=== PATIENT | female | born 1935 | race Caucasian/White ===

== ENCOUNTER 2018-11-04 13:00 | Observation (INO) | payer MEDICARE ==
[2018-11-04] MEDS ORDERED: Ondansetron 4 MG/2 ML SDV IVPUSH PRN (13:17)
[2018-11-04] MEDS ORDERED: Sodium Chloride 0.9% 1,000 ML IV SCH ×2 (13:30→15:15)
[2018-11-04 13:33] LABS: CHLORIDE,CL 98 mEq/L (98-106); SODIUM,NA 134 mEq/L (136-145)
[2018-11-04] MEDS ORDERED: Iopamidol 612 MG/ML 100 ML Bottle IVPUSH ONE (13:54)
[2018-11-04] MEDS ORDERED: Calcium Carbonate 500 MG Tab.Chew PO PRN (15:01)
[2018-11-04] MEDS ORDERED: Acetaminophen 325 MG Tab PO PRN (15:08)
--- NOTE | 2018-11-04 18:08 | EDM.PDOC ---
ED HPI GENERAL MEDICAL PROBLEM - General Chief Complaint: General Stated Complaint: dizziness, nausea Time Seen by Provider: 11/04/18 13:40 Source of Information: Reports: Patient History Limitations: Reports: No Limitations - History of Present Illness INITIAL COMMENTS - FREE TEXT/NARRATIVE: Briana is an 83 you female who presents to the ED via private vehicle with complaints of dizziness. She states she started having the dizziness around 1100 this morning. States she has been dry heaving and feeling very nauseated. Admits it feels like the room is spinning and if she turns her head to the right it gets worse. States up until this morning she has been feeling well. - Related Data Allergies Allergy/AdvReac Type Severity Reaction Status Date / Time Penicillins Allergy Hives Verified 11/04/18 13:06 Home Meds: Home Meds Calcium Carbonate [Tums] 200 mg PO DAILY PRN 07/11/15 [History] Levothyroxine 75 mcg PO ACBREAKFAST 07/11/15 [History] Diltiazem [Cardizem CD] 120 mg PO DAILY #30 cap.cd 07/13/15 [Rx] Past Medical History HEENT History: Reports: Impaired Vision Cardiovascular History: Reports: Afib, Hypertension Endocrine/Metabolic History: Reports: Hypothyroidism - Past Surgical History GI Surgical History: Reports: Cholecystectomy, Vicki Fundoplication Female Surgical History: Reports: Hysterectomy Musculoskeletal Surgical History: Reports: Joint Replacement Dermatological Surgical History: Reports: Other (See Below) Social & Family History - Tobacco Use Smoking Status *Q: Never Smoker - Caffeine Use Caffeine Use: Reports: Soda - Recreational Drug Use Recreational Drug Use: No ED ROS GENERAL - Review of Systems Review Of Systems: See Below Constitutional: Denies: Fever, Weakness, Diaphoresis HEENT: Reports: Vertigo. Denies: Sinus Problem, Vision Change Respiratory: Denies: Shortness of Breath, Wheezing, Pleuritic Chest Pain Cardiovascular: Reports: Lightheadedness. Denies: Chest Pain, Palpitations, Syncope GI/Abdominal: Reports: Nausea. Denies: Abdominal Pain, Bloody Stool, Constipation, Diarrhea : Reports: No Symptoms. Denies: Discharge, Dysuria, Frequency, Hematuria, Pain, Urgency Skin: Reports: No Symptoms Neurological: Reports: Difficulty Walking. Denies: Confusion, Headache, Numbness, Pre-Existing Deficit, Seizure, Syncope, Tingling, Change in Speech ED EXAM, GENERAL - Physical Exam Exam: See Below Exam Limited By: No Limitations General Appearance: Alert, No Apparent Distress Ears: Normal External Exam, Normal Canal, Hearing Grossly Normal, Normal TMs Nose: Normal Inspection, Normal Mucosa, No Blood Throat/Mouth: Normal Inspection, Normal Lips, Normal Gums, Normal Oropharynx, Normal Voice, No Airway Compromise Head: Atraumatic, Normocephalic, Other (Positive Marcello-Hallpike maneuver test R>L) Neck: Supple, Other (Irregular, mobile lesion to right parotid gland) Respiratory/Chest: No Respiratory Distress, Lungs Clear, Normal Breath Sounds, No Accessory Muscle Use Cardiovascular: Regular Rate, Rhythm, No Edema, No Murmur Neurological: Alert, Oriented, CN II-XII Intact, Normal Cognition, No Motor/ Sensory Deficits Psychiatric: Normal Affect, Normal Mood Skin Exam: Warm, Dry, Intact, Normal Color, No Rash Course - Vital Signs Last Recorded V/S: Last Vital Signs Temp 96.9 F 11/04/18 13:59 Pulse 66 11/04/18 13:59 Resp 16 11/04/18 13:59 BP 182/74 H 11/04/18 13:59 Pulse Ox 100 11/04/18 13:59 - Orders/Labs/Meds Orders: Active Orders 24 hr Category Date Time Status Soft Tissue Neck w Cont [CT] Routine Exams 11/04/18 Taken Ondansetron [Zofran] Med 11/04/18 13:17 Active 4 mg IVPUSH Q6H PRN Medication Orders Acetaminophen (Tylenol) 650 mg PO Q4H PRN PRN Reason: Pain (Mild 1-3)/fever Calcium Carbonate/Glycine (Tums) 200 mg PO DAILY PRN PRN Reason: Other Diltiazem HCl (Cardizem Cd) 120 mg PO DAILY [facility] Enoxaparin Sodium (Lovenox) 40 mg SUBCUT BEDTIME [facility] Sodium Chloride (Normal Saline) 1,000 mls @ 75 mls/hr IV ASDIRECTED [facility] Non-Formulary Medication (Levothyroxine [Levothyroxine]) 75 mcg PO ACBREAKFAST [facility] Ondansetron HCl (Zofran) 4 mg IVPUSH Q6H PRN PRN Reason: Nausea Last Admin: 11/04/18 13:22 Dose: 4 mg Labs: Laboratory Tests 11/04/18 11/04/1811/04/19 Range/Units 13:10 13:10 13:10 WBC 4.8 L (5.0-10.0) 10^3/uL RBC 4.29 (4.00-5.50) 10^6/uL Hgb 12.4 (12.0-16.0) g/dL Hct 37.0 (37.0-47.0) % MCV 86.2 (82.0-94.0) fL MCH 28.9 (27.0-32.0) pg MCHC 33.5 (33.0-38.0) g/dL RDW Coeff of Jesus 12.9 (11.0-15.0) % Plt Count 223 (150-400) 10^3/uL Neut % (Auto) 70.5 (35-85) % Lymph % (Auto) 16.9 (10-55) % [place] % (Auto) 11.2 (0-16) % Eos % (Auto) 1.0 (0-5) % Baso % (Auto) 0.4 (0-3) % Neut # (Auto) 3.41 (1.80-7.00) 10^3/uL Lymph # (Auto) 0.82 L (1.00-4.80) 10^3/uL [place] # (Auto) 0.54 (0.00-0.80) 10^3/uL Eos # (Auto) 0.05 (0.00-0.45) 10^3/uL Baso # (Auto) 0.02 10^3/uL PT 10.4 (9.7-12.3) SEC INR 1.01 (0.92-1.18) APTT 25.4 (23.2-32.3) SEC Sodium 134 L (136-145) mEq/L Potassium 3.6 (3.5-5.0) mEq/L Chloride 98 (98-106) mEq/L Carbon Dioxide 24 (21-32) mmol/L BUN 14 (7-18) mg/dL Creatinine 1.1 H (0.6-1.0) mg/dL Est Cr Clr Drug Dosing 35.64 mL/min Estimated GFR (MDRD) 47 L (>=60) mL/min Glucose 130 H D (75-99) mg/dL Calcium 9.1 (8.4-10.1) mg/dL Lactate Dehydrogenase 159 (100-190) U/L Creatine Kinase 77 (21-215) U/L Troponin I < 0.017 (0.00-0.06) ng/mL TSH, Ultra Sensitive (0.36-5.60) uIU/mL Urine Color (YELLOW) Urine Appearance (CLEAR) Urine pH (4.5-8.0) Ur Specific [place] (1.003-1.020) Urine Protein (NEGATIVE) mg/dL Urine Glucose (UA) (NEGATIVE) mg/dL Urine Ketones (NEGATIVE) mg/dL Urine Occult Blood (NEGATIVE) Urine Nitrite (NEGATIVE) Urine Bilirubin (NEGATIVE) Urine Urobilinogen (0.2-1.0) EU/dL Ur Leukocyte Esterase (NEGATIVE) 11/04/18 11/04/18 Range/Units 13:48 13:48 WBC (5.0-10.0) 10^3/uL RBC (4.00-5.50) 10^6/uL Hgb (12.0-16.0) g/dL Hct (37.0-47.0) % MCV (82.0-94.0) fL MCH (27.0-32.0) pg MCHC (33.0-38.0) g/dL RDW Coeff of Jesus (11.0-15.0) % Plt Count (150-400) 10^3/uL Neut % (Auto) (35-85) % Lymph % (Auto) (10-55) % [place] % (Auto) (0-16) % Eos % (Auto) (0-5) % Baso % (Auto) (0-3) % Neut # (Auto) (1.80-7.00) 10^3/uL Lymph # (Auto) (1.00-4.80) 10^3/uL [place]y # (Auto) (0.00-0.80) 10^3/uL Eos # (Auto) (0.00-0.45) 10^3/uL Baso # (Auto) 10^3/uL PT (9.7-12.3) SEC INR (0.92-1.18) APTT (23.2-32.3) SEC Sodium (136-145) mEq/L Potassium (3.5-5.0) mEq/L Chloride (98-106) mEq/L Carbon Dioxide (21-32) mmol/L BUN (7-18) mg/dL Creatinine (0.6-1.0) mg/dL Est Cr Clr Drug Dosing mL/min Estimated GFR (MDRD) (>=60) mL/min Glucose (75-99) mg/dL Calcium (8.4-10.1) mg/dL Lactate Dehydrogenase (100-190) U/L Creatine Kinase (21-215) U/L Troponin I (0.00-0.06) ng/mL TSH, Ultra Sensitive 4.04 (0.36-5.60) uIU/mL Urine Color Yellow (YELLOW) Urine Appearance Clear (CLEAR) Urine pH 7.5 (4.5-8.0) Ur Specific [place] 1.015 (1.003-1.020) Urine Protein Negative (NEGATIVE) mg/dL Urine Glucose (UA) Negative (NEGATIVE) mg/dL Urine Ketones Negative (NEGATIVE) mg/dL Urine Occult Blood Negative (NEGATIVE) Urine Nitrite Negative (NEGATIVE) Urine Bilirubin Negative (NEGATIVE) Urine Urobilinogen 0.2 (0.2-1.0) EU/dL Ur Leukocyte Esterase Negative (NEGATIVE) Meds: Medications Generic Name Dose Route Start Last Admin Trade Name Freq PRN Reason Stop Dose Admin Acetaminophen 650 mg 11/04/18 15:08 Tylenol PO Q4H PRN Pain (Mild 1-3)/fever Calcium Carbonate/Glycine 200 mg 11/04/18 15:01 Tums PO DAILY PRN Other Diltiazem HCl 120 mg 11/05/18 08:00 Cardizem Cd PO DAILY [facility] Enoxaparin Sodium 40 mg 11/04/18 20:00 Lovenox SUBCUT BEDTIME [facility] Sodium Chloride 1,000 mls @ 75 mls/hr 11/04/18 15:15 Normal Saline IV ASDIRECTED [facility] Non-Formulary Medication 75 mcg 11/05/18 07:00 Levothyroxine [Levothyroxine] PO ACBREAKFAST [facility] Ondansetron HCl 4 mg 11/04/18 13:17 11/04/18 13:22 Zofran IVPUSH 4 mg Q6H PRN Administration Nausea Discontinued Medications Generic Name Dose Route Start Last Admin Trade Name Freq PRN Reason Stop Dose Admin Sodium Chloride 1,000 mls @ 150 mls/hr 11/04/18 13:30 11/04/18 13:21 Normal Saline IV 150 mls/hr ASDIRECTED [facility] Administration Iopamidol 100 ml 11/04/18 13:54 11/04/18 14:03 Isovue-300 (61%) IVPUSH 11/04/18 13:55 100 ml ONETIME ONE Administration Departure - Departure Time of Disposition: 14:00 Disposition: Refer to Observation Clinical Impression: Mass of right parotid gland Benign paroxysmal positional vertigo Qualifiers: Laterality: right Qualified Code(s): H81.11 - Benign paroxysmal vertigo, right ear - Discharge Information - Problem List & Annotations (1) Atrial fibrillation SNOMED Code(s): 33522604 Code(s): I48.91 - UNSPECIFIED ATRIAL FIBRILLATION Status: Acute Current Visit: No (2) Mass of right parotid gland SNOMED Code(s): 65509814872437824 Code(s): K11.9 - DISEASE OF SALIVARY GLAND, UNSPECIFIED Status: Acute Current Visit: Yes - My Orders Last 24 Hours: My Active Orders 11/04/18 Soft Tissue Neck w Cont [CT] Routine 11/04/18 13:17 Ondansetron [Zofran] 4 mg IVPUSH Q6H PRN - Assessment/Plan Admission H&P: Please use this note as an admission H&P Last 24 Hours: My Active Orders 11/04/18 Soft Tissue Neck w Cont [CT] Routine 11/04/18 13:17 Ondansetron [Zofran] 4 mg IVPUSH Q6H PRN Plan: Cardiac work up is negative. EKG is stable, NSR. Labs unremarkable. Will admit to Dr. Boswell's services under observation for monitoring, canalith repositioning. Will start Meclizine as well for vertigo. In regards to parotid mass, will get CT of neck. CT head negative for any acute changes. Dr. boswell consulted and agreed with admission. He did evaluate Briana as well today.
[2018-11-04] MEDS ORDERED: Meclizine 12.5 MG Tab PO PRN (18:11)
[2018-11-04] MEDS ORDERED: Enoxaparin 40 MG/0.4 ML Syringe SUBCUT SCH (20:00)
[2018-11-05] MEDS ORDERED: LEVOTHYROXINE 75 MCG PO SCH (07:00)
[2018-11-05 07:50] VITALS: BP 148/64
[2018-11-05] MEDS ORDERED: DILTIAZEM 120 MG PO SCH (08:00)
--- NOTE | 2018-11-05 21:11 | PCM.DCSUM1 ---
Discharge Summary - Hospital Course Free Text/Narrative:: Patient presented to ER with complaints of dizziness. States awoke this am feeling good, was resting in chair and when turned head to the right, developed acute dizziness. Room was spinning, felt very nauseated, had dry heaves. Exam findings positive [place] Hallpike with R>L. CT scan of the head was negative, incident finding of parotid mass to the right. Labs essentially normal, sodium mildly low at 134. Admitted observation for monitoring. PT for canalith repositioning. Diagnosis: Stroke: No Modified [place] Scale: No Symptoms at All Modified [place] Scale Score: 0 - Discharge Data Discharge Date: 11/05/18 Discharge Disposition: Home, Self-Care 01 Condition: Good - Patient Summary/Data Complications: none Consults: Consultations 11/04/18 15:08 PT Evaluation and Treatment [CONS] Routine Hospital Course: Patient doing well today, no further dizziness. Did attempt canalith repositioning yesterday but patient did not tolerate due to neck pain. Given IV fluids. Telemetry unchanged. Ambulatory this am, tolerating well. No further nausea, did tolerate breakfast this am. Labs this am stable, WBC 6.2, electrolytes normal. Discharge home on Meclizine. Follow up with Dr. Perla next week for evaluation of parotid mass. - Patient Instructions Diet: Usual Diet as Tolerated Activity: As Tolerated Other/Special Instructions: See Dr. Perla on November 13 at 1030 am for consult on parotid mass - Discharge Plan *PRESCRIPTION DRUG MONITORING PROGRAM REVIEWED*: No *COPY OF PRESCRIPTION DRUG MONITORING REPORT IN PATIENT MARCE: No Prescriptions/Med Rec: Meclizine [Antivert] 12.5 mg PO Q6H PRN #30 tablet PRN Reason: Dizziness Home Medications: Home Meds Calcium Carbonate [Tums] 200 mg PO DAILY PRN 07/11/15 [History] Levothyroxine 75 mcg PO ACBREAKFAST 07/11/15 [History] Diltiazem [Cardizem CD] 120 mg PO DAILY #30 cap.cd 07/13/15 [Rx] Meclizine [Antivert] 12.5 mg PO Q6H PRN #30 tablet 11/05/18 [Rx] Patient Handouts: Benign Positional Vertigo Forms: ED Department Discharge Referrals: Jacob Boswell MD [Primary Care Provider] - (Follow up in one week with Dr. Boswell) - Discharge Summary/Plan Comment DC Time >30 min.: No - General Info Date of Service: 11/05/18 Admission Dx/Problem (Free Text: BPPV Functional Status: Reports: Pain Controlled, Tolerating Diet - Review of Systems General: Denies: Fever, Weakness, Fatigue, Malaise HEENT: Denies: Headaches, Sore Throat, Rhinitis Pulmonary: Denies: Shortness of Breath, Cough, Wheezing Cardiovascular: Denies: Chest Pain, Edema, Lightheadedness Gastrointestinal: Denies: Abdominal Pain, Nausea, Vomiting Genitourinary: Reports: No Symptoms Musculoskeletal: Reports: No Symptoms Skin: Reports: No Symptoms Neurological: Denies: Dizziness, Headache, Syncope, Weakness - Patient Data Vitals - Most Recent: Last Vital Signs Temp 99.0 F 11/05/18 08:00 Pulse 70 11/05/18 08:00 Resp 20 11/05/18 08:00 BP 148/64 H 11/05/18 08:00 Pulse Ox 98 11/05/18 08:00 Weight - Most Recent: 164 lb 12.8 oz Lab Results - Last 24 hrs: Laboratory Results - last 24 hr 11/05/18 11/05/18 Range/Units 05:11 07:00 WBC 6.2 (5.0-10.0) 10^3/uL RBC 4.25 (4.00-5.50) 10^6/uL Hgb 12.5 (12.0-16.0) g/dL Hct 37.8 (37.0-47.0) % MCV 88.9 (82.0-94.0) fL MCH 29.4 (27.0-32.0) pg MCHC 33.1 (33.0-38.0) g/dL RDW Coeff of Jesus 13.1 (11.0-15.0) % Plt Count 236 (150-400) 10^3/uL Neut % (Auto) 71.3 (35-85) % Lymph % (Auto) 17.3 (10-55) % [place] % (Auto) 10.0 (0-16) % Eos % (Auto) 1.1 (0-5) % Baso % (Auto) 0.3 (0-3) % Neut # (Auto) 4.41 (1.80-7.00) 10^3/uL Lymph # (Auto) 1.07 (1.00-4.80) 10^3/uL [place] # (Auto) 0.62 (0.00-0.80) 10^3/uL Eos # (Auto) 0.07 (0.00-0.45) 10^3/uL Baso # (Auto) 0.02 10^3/uL Sodium 141 (136-145) mEq/L Potassium 3.6 (3.5-5.0) mEq/L Chloride 105 (98-106) mEq/L Carbon Dioxide 29 (21-32) mmol/L BUN 10 (7-18) mg/dL Creatinine 1.0 (0.6-1.0) mg/dL Est Cr Clr Drug Dosing 39.20 mL/min Estimated GFR (MDRD) 53 L (>=60) mL/min Glucose 94 D (75-99) mg/dL Calcium 8.8 (8.4-10.1) mg/dL Med Orders - Current: Current Medications Discontinued Medications Acetaminophen (Tylenol) 650 mg PO Q4H PRN PRN Reason: Pain (Mild 1-3)/fever Calcium Carbonate/Glycine (Tums) 200 mg PO DAILY PRN PRN Reason: Other Diltiazem HCl (Cardizem Cd) 120 mg PO DAILY [facility] Last Admin: 11/05/18 07:50 Dose: 120 mg Enoxaparin Sodium (Lovenox) 40 mg SUBCUT BEDTIME [facility] Last Admin: 11/04/18 19:53 Dose: Not Given Sodium Chloride (Normal Saline) 1,000 mls @ 150 mls/hr IV ASDIRECTED [facility] Last Admin: 11/04/18 13:21 Dose: 150 mls/hr Sodium Chloride (Normal Saline) 1,000 mls @ 75 mls/hr IV ASDIRECTED [facility] Stop: 11/05/18 04:34 Iopamidol (Isovue-300 (61%)) 100 ml IVPUSH ONETIME ONE Stop: 11/04/18 13:55 Last Admin: 11/04/18 14:03 Dose: 100 ml Meclizine HCl (Antivert) 12.5 mg PO Q6H PRN PRN Reason: Dizziness Patients Own ( Levothyroxine [ Levothyroxine] 75 Mcg) 75 mcg PO ACBREAKFAST [facility] Last Admin: 11/05/18 06:58 Dose: 75 mcg Ondansetron HCl (Zofran) 4 mg IVPUSH Q6H PRN PRN Reason: Nausea Last Admin: 11/04/18 13:22 Dose: 4 mg - Exam General: Reports: Alert, Oriented HEENT: Reports: Pupils Equal, Pupils Reactive, Mucous Membr. Moist/Novice Lungs: Reports: Clear to Auscultation, Normal Respiratory Effort Cardiovascular: Reports: Regular Rate, Regular Rhythm GI/Abdominal Exam: Normal Bowel Sounds, Soft, Non-Tender Skin: Reports: Warm, Dry Neurological: Reports: No New Focal Deficit
== END 2018-11-05 09:01 | disposition home or self-care (01) ==
LOC: CC.ED 13:00 → CC.MS 13:56 → UNDOADMOB 13:56 → CC.MS 14:59
PROVIDERS: ADMIT Physician Assistant Medical; ATTEND Family Medicine
DX: H81.11 Benign paroxysmal vertigo, right ear (principal); K11.8 Other diseases of salivary glands; I10 Essential (primary) hypertension; I48.91 Unspecified atrial fibrillation; E03.9 Hypothyroidism, unspecified; Z88.0 Allergy status to penicillin; Z79.899 Other long term (current) drug therapy
CPT/HCPCS: 36415; 70460; 70491; 80048; 81003; 82550; 83615; 84443; 84484; 85025; 85610; 85730; 93005; 93010; 96361; 96374; 97750-GP; 99217; 99219; 99285-25; A9270-GY; G0378; J2405; J7030; Q9967

== ENCOUNTER 2022-01-29 07:55 | Emergency (ER) | payer MEDICARE, OTHER ==
[~2022-01-29 07:55] MED LIST: Ondansetron 4 MG/2 ML SDV ONE
[2022-01-29] MEDS ORDERED: Potassium Chloride 10 MEQ Tab.ER PO ONE (08:33)
[2022-01-29 08:45] VITALS: BP 163/71; PULSE 65
== END 2022-01-29 10:11 | disposition home or self-care (01) ==
LOC: CC.ED 07:55
DX: H81.11 Benign paroxysmal vertigo, right ear (principal); I48.91 Unspecified atrial fibrillation; I10 Essential (primary) hypertension; E03.9 Hypothyroidism, unspecified; Z88.0 Allergy status to penicillin; Z79.899 Other long term (current) drug therapy; Z20.822 Contact with and (suspected) exposure to COVID-19
CPT/HCPCS: 36415; 71045; 80053; 81001; 83735; 85025; 87086; 93005; 93010; 99284; A9270-GY; U0002

== ENCOUNTER 2022-02-23 14:04 | Emergency (ER) | payer MEDICARE, OTHER ==
[2022-02-23] MEDS: fentaNYL 50 MCG/ML SDV IVPUSH ONE (16:22)
[2022-02-23 16:23] VITALS: BP 189/88; PULSE 77
[2022-02-23] MEDS ORDERED: fentaNYL 50 MCG/ML SDV IVPUSH ONE (16:56)
[2022-02-23] MEDS: Lidocaine 5% 700 MG Patch TRDERM ONE (17:13)
[2022-02-23] MEDS: Ondansetron 4 MG/2 ML SDV IVPUSH ONE (17:13)
== END 2022-02-23 17:59 ==
LOC: CC.ED 14:04
DX: S72.001A Fracture of unspecified part of neck of right femur, initial encounter for closed fracture (principal); S70.01XA Contusion of right hip, initial encounter; I48.91 Unspecified atrial fibrillation; E03.9 Hypothyroidism, unspecified; I10 Essential (primary) hypertension; Z88.0 Allergy status to penicillin; Z79.899 Other long term (current) drug therapy; W01.0XXA Fall on same level from slipping, tripping and stumbling without subsequent striking against object, initial encounter
CPT/HCPCS: 36415; 51702; 80053; 85025; 96374; 96375; 99284; 99285-25; A9270-GY; J2405; J3010; U0002

== ENCOUNTER 2022-02-27 13:38 | Inpatient (IN) | payer MEDICARE, OTHER ==
[2022-02-27] MEDS ORDERED: Calcium Carbonate 500 MG Tab.Chew PO PRN (14:18)
[2022-02-27] MEDS ORDERED: Ondansetron 4 MG Tab.DIS PO PRN (14:20)
[2022-02-27] MEDS: Acetaminophen 325 MG Tab PO PRN (18:20)
[2022-02-27] MEDS: Apixaban 5 MG Tab PO SCH (19:42)
[2022-02-28] MEDS: Acetaminophen 325 MG Tab PO PRN ×2 (01:02→16:39)
[2022-02-28] MEDS ORDERED: cloNIDine 0.1 MG Tab PO STA (03:13)
[2022-02-28] MEDS ORDERED: cloNIDine 0.1 MG Tab PO SCH (03:15)
[2022-02-28] MEDS: Levothyroxine 50 MCG Tab PO SCH (06:15)
[2022-02-28] MEDS ORDERED: Diltiazem 120 MG Cap.CD PO SCH (08:00)
[2022-02-28] MEDS: Apixaban 5 MG Tab PO SCH ×2 (08:05→19:38)
[2022-02-28] MEDS: Polyethylene Glycol 3350 Powder 17 GM Packet PO PRN (19:38)
[2022-02-28] MEDS: Cyclobenzaprine 10 MG Tab PO PRN (20:45)
[2022-02-28] MEDS: traMADol 50 MG Tab PO PRN (22:12)
[2022-03-01] MEDS: traMADol 50 MG Tab PO PRN (04:12)
[2022-03-01] MEDS: Levothyroxine 50 MCG Tab PO SCH (06:58)
[2022-03-01] MEDS: Apixaban 5 MG Tab PO SCH ×2 (07:58→20:15)
[2022-03-01] MEDS: CARTIA XT 120 MG PO SCH (10:31)
[2022-03-01] MEDS: Acetaminophen 325 MG Tab PO PRN (17:01)
[2022-03-01] MEDS: Polyethylene Glycol 3350 Powder 17 GM Packet PO PRN (20:15)
[2022-03-02] MEDS: Cyclobenzaprine 10 MG Tab PO PRN (00:45)
[2022-03-02] MEDS: Acetaminophen 325 MG Tab PO PRN ×2 (00:46→10:51)
[2022-03-02] MEDS: Levothyroxine 50 MCG Tab PO SCH (06:13)
[2022-03-02] MEDS: Apixaban 5 MG Tab PO SCH ×2 (07:40→19:21)
[2022-03-02] MEDS: CARTIA XT 120 MG PO SCH (10:51)
[2022-03-02] MEDS: traMADol 50 MG Tab PO PRN (23:47)
[2022-03-03] MEDS: Cyclobenzaprine 10 MG Tab PO PRN ×2 (01:20→16:09)
[2022-03-03] MEDS: Levothyroxine 50 MCG Tab PO SCH (06:20)
[2022-03-03] MEDS: Apixaban 5 MG Tab PO SCH ×2 (11:07→19:24)
[2022-03-03] MEDS: CARTIA XT 120 MG PO SCH (11:08)
[2022-03-03] MEDS: Acetaminophen 325 MG Tab PO PRN (18:30)
[2022-03-04] MEDS: Levothyroxine 50 MCG Tab PO SCH (06:30)
[2022-03-04] MEDS: Apixaban 5 MG Tab PO SCH ×2 (07:46→19:12)
[2022-03-04] MEDS: CARTIA XT 120 MG PO SCH (10:26)
[2022-03-04] MEDS: Acetaminophen 325 MG Tab PO PRN ×2 (11:18→18:40)
[2022-03-04] MEDS: Cyclobenzaprine 10 MG Tab PO PRN (18:39)
[2022-03-05] MEDS: traMADol 50 MG Tab PO PRN ×2 (01:24→19:05)
[2022-03-05] MEDS: Cyclobenzaprine 10 MG Tab PO PRN ×2 (02:40→19:05)
[2022-03-05] MEDS: Levothyroxine 50 MCG Tab PO SCH (06:55)
[2022-03-05] MEDS: Apixaban 5 MG Tab PO SCH ×2 (10:03→19:03)
[2022-03-05] MEDS: CARTIA XT 120 MG PO SCH (10:05)
[2022-03-05] MEDS: Acetaminophen 325 MG Tab PO PRN (14:59)
[2022-03-06] MEDS: Levothyroxine 50 MCG Tab PO SCH (06:07)
[2022-03-06] MEDS: Apixaban 5 MG Tab PO SCH ×2 (08:17→19:02)
[2022-03-06] MEDS: CARTIA XT 120 MG PO SCH (10:12)
[2022-03-06] MEDS: Acetaminophen 325 MG Tab PO PRN (18:00)
[2022-03-07] MEDS: Cyclobenzaprine 10 MG Tab PO PRN (04:03)
[2022-03-07] MEDS: traMADol 50 MG Tab PO PRN ×2 (04:03→17:08)
[2022-03-07] MEDS: Levothyroxine 50 MCG Tab PO SCH (06:38)
[2022-03-07] MEDS: Apixaban 5 MG Tab PO SCH ×2 (07:52→19:54)
[2022-03-07] MEDS: CARTIA XT 120 MG PO SCH (12:51)
[2022-03-08] MEDS: Levothyroxine 50 MCG Tab PO SCH (06:10)
[2022-03-08] MEDS: Apixaban 5 MG Tab PO SCH (07:36)
[2022-03-08 08:24] VITALS: BP 150/58; PULSE 77
[2022-03-08] MEDS: CARTIA XT 120 MG PO SCH (10:07)
== END 2022-03-08 10:09 | DRG 560 ==
LOC: UNDOADMIN 13:38 → CC.MS 13:38
PROVIDERS: ADMIT Nurse Practitioner Family; ATTEND Nurse Practitioner Family
DX: Z47.1 Aftercare following joint replacement surgery (principal); M97.8XXA Periprosthetic fracture around other internal prosthetic joint, initial encounter; E87.1 Hypo-osmolality and hyponatremia; Z96.641 Presence of right artificial hip joint; H54.7 Unspecified visual loss; I10 Essential (primary) hypertension; E03.9 Hypothyroidism, unspecified; K59.01 Slow transit constipation; Z91.030 Bee allergy status; Z88.8 Allergy status to other drugs, medicaments and biological substances; Z88.0 Allergy status to penicillin; Z79.890 Hormone replacement therapy; Z90.710 Acquired absence of both cervix and uterus; Z90.49 Acquired absence of other specified parts of digestive tract
CPT/HCPCS: 36415; 71045; 80053; 85025; 97110-GP; 97161-GP; 97530-GP; A9270-GY

== ENCOUNTER 2023-07-23 10:38 | Inpatient (IN) | payer MEDICARE, OTHER ==
[2023-07-23] MEDS ORDERED: Sodium Chloride 0.9% 500 ML IV SCH (11:00)
[2023-07-23 11:12] LABS: BASOPHILS ABSOLUTE AUTO 0.02 10^3/uL (0.00-0.50); BASOPHILS PERCENT AUTO 0.4 % (0-1); EOSINOPHILS ABSOLUTE AUTO 0.01 10^3/uL (0.00-1.50); EOSINOPHILS PERCENT AUTO 0.2 % (0-6); HEMATOCRIT 35.2 % (37.0-47.0); HEMOGLOBIN 12.4 g/dL (12.0-16.0); IMMATURE GRAN ABSOLUTE AUTO 0.01 10^3/uL (0.00-0.49); IMMATURE GRAN PERCENT AUTO 0.2 % (0.0-4.9); LYMPHOCYTES ABSOLUTE AUTO 0.15 10^3/uL (0.60-5.00); LYMPHOCYTES PERCENT AUTO 2.7 % (24-44); MEAN CORPUSCULAR HEMOGLOBIN 28.8 pg (27.0-32.0); MEAN CORPUSCULAR HGB CONC 35.2 g/dL (32.0-36.0); MEAN CORPUSCULAR VOLUME 81.7 fL (83.0-97.0); MONOCYTES ABSOLUTE AUTO 0.38 10^3/uL (0.00-1.50); MONOCYTES PERCENT AUTO 6.9 % (0-10); NEUTROPHILS ABSOLUTE AUTO 4.92 x10^3/uL (1.80-8.00); NEUTROPHILS PERCENT AUTO 89.6 % (41-71); PLATELET COUNT,PLT 212 10^3/uL (150-400); RED BLOOD CELL COUNT 4.31 x10^6/uL (4.00-5.50); WHITE BLOOD CELL COUNT,WBC 5.5 10^3/uL (4.0-11.0)
[2023-07-23 11:13] LABS: APPEARANCE,URINE CLEAR (CLEAR); BILIRUBIN,URINE NEGATIVE (NEGATIVE); COLOR,URINE YELLOW (YELLOW); GLUCOSE,URINE NEGATIVE (NEGATIVE); KETONES,URINE NEGATIVE (NEGATIVE); LEUKOCYTE ESTERASE,URINE SMALL (NEGATIVE); NITRITE,URINE NEGATIVE (NEGATIVE); OCCULT BLOOD,URINE NEGATIVE (NEGATIVE); PH,URINE 5.5 (4.5-8.0); PROTEIN,URINE NEGATIVE (NEGATIVE); UROBILINOGEN,URINE 0.2 EU/dL (0.2-1.0)
[2023-07-23 11:29] LABS: EPITHELIAL CELLS,URINE NOT SEEN /HPF (NOT SEEN); RBC,URINE NOT SEEN /HPF (0-5); WBC,URINE 0-5 /HPF (0-5)
[2023-07-23 11:30] LABS: BACTERIA,URINE OCCASIONAL /HPF (NOT SEEN); MUCUS,URINE NOT SEEN /HPF (NOT SEEN)
[2023-07-23 11:33] LABS: ALANINE AMINOTRANSFERASE,ALT 13 U/L (12-78); ALBUMIN 3.1 g/dL (3.4-5.0); ALKALINE PHOSPHATASE 79 U/L (46-116); ASPARTATE AMNIOTRANSFERASE,AST 20 U/L (15-37); BILIRUBIN TOTAL 0.5 mg/dL (0.0-1.0); BLOOD UREA NITROGEN,BUN 30 mg/dL (7-18); CALCIUM 8.6 mg/dL (8.4-10.1); CARBON DIOXIDE,CO2 30 mmol/L (21-32); CHLORIDE,CL 84 mEq/L (98-106); CREATININE 1.4 mg/dL (0.6-1.0); GLUCOSE RANDOM 129 mg/dL (75-99); MAGNESIUM 1.6 mg/dL (1.8-2.4); POTASSIUM,K 3.2 mEq/L (3.5-5.0); PROTEIN TOTAL,TP 6.8 g/dL (6.4-8.2)
[2023-07-23 11:34] LABS: ESTIMATED GFR 36 mL/min (>=60); SODIUM,NA 121 mEq/L (136-145)
[2023-07-23 11:43] LABS: CORONAVIRUS COVID-19 NAA NEGATIVE (NEGATIVE); INFLUENZA A NAA NEGATIVE (NEGATIVE); INFLUENZA B NAA NEGATIVE (NEGATIVE); RESPIRATORY SYNCYTIAL VIR NAA NEGATIVE (NEGATIVE)
[2023-07-23] MEDS ORDERED: Magnesium Sulfate/Water 2 GM in Premix Bag 1 BAG IV ONE (11:44)
[2023-07-23] MEDS ORDERED: Sodium Chloride 3% 100 ML IV ONE ×2 (12:00→17:15)
[2023-07-23] MEDS ORDERED: Cyclobenzaprine 10 MG Tab PO PRN (13:36)
[2023-07-23] MEDS ORDERED: Calcium Carbonate 500 MG Tab.Chew PO PRN (13:36)
[2023-07-23] MEDS ORDERED: Polyethylene Glycol 3350 Powder 17 GM Packet PO PRN (13:36)
[2023-07-23] MEDS ORDERED: Ondansetron 4 MG/2 ML SDV IV PRN (13:37)
[2023-07-23] MEDS ORDERED: Acetaminophen 325 MG Tab PO PRN (13:37)
[2023-07-23] MEDS ORDERED: Sennosides/Docusate Sodium 50-8.6 MG Tab PO PRN (13:37)
[2023-07-23] MEDS ORDERED: traMADol 50 MG Tab PO PRN (13:37)
[2023-07-23 15:26] LABS: ALANINE AMINOTRANSFERASE,ALT 10 U/L (12-78); ALBUMIN 2.7 g/dL (3.4-5.0); ALKALINE PHOSPHATASE 71 U/L (46-116); ASPARTATE AMNIOTRANSFERASE,AST 13 U/L (15-37); BILIRUBIN TOTAL 0.5 mg/dL (0.0-1.0); BLOOD UREA NITROGEN,BUN 28 mg/dL (7-18); CALCIUM 8.2 mg/dL (8.4-10.1); CARBON DIOXIDE,CO2 30 mmol/L (21-32); CHLORIDE,CL 88 mEq/L (98-106); CREATININE 1.1 mg/dL (0.6-1.0); GLUCOSE RANDOM 119 mg/dL (75-99); MAGNESIUM 2.4 mg/dL (1.8-2.4); POTASSIUM,K 3.3 mEq/L (3.5-5.0); PROTEIN TOTAL,TP 6.3 g/dL (6.4-8.2)
[2023-07-23 15:31] LABS: SODIUM,NA 123 mEq/L (136-145)
[2023-07-23 15:32] LABS: ESTIMATED GFR 48 mL/min (>=60)
[2023-07-23 19:23] LABS: ALBUMIN 2.7 g/dL (3.4-5.0); BILIRUBIN TOTAL 0.4 mg/dL (0.0-1.0); CALCIUM 8.4 mg/dL (8.4-10.1); CREATININE 1.1 mg/dL (0.6-1.0); EST CRCL DRUG DOSING (CG) 26.16 mL/min; PROTEIN TOTAL,TP 6.2 g/dL (6.4-8.2)
[2023-07-23] MEDS ORDERED: Potassium Chloride 20 MEQ Tab.ER PO ONE (19:44)
[2023-07-23] MEDS ORDERED: Sodium Chloride 0.9% 1,000 ML IV SCH (20:00)
[2023-07-23] MEDS ORDERED: Non-Formulary Medication 1 Each (Apixaban [Eliquis] 2.5 MG Tablet) PO SCH (20:00)
[2023-07-24] MEDS: Levothyroxine 50 MCG Tab PO SCH (07:11)
[2023-07-24 07:36] LABS: BASOPHILS ABSOLUTE AUTO 0.04 10^3/uL (0.00-0.50); BASOPHILS PERCENT AUTO 0.8 % (0-1); EOSINOPHILS ABSOLUTE AUTO 0.02 10^3/uL (0.00-1.50); EOSINOPHILS PERCENT AUTO 0.4 % (0-6); HEMATOCRIT 31.8 % (37.0-47.0); IMMATURE GRAN ABSOLUTE AUTO 0.02 10^3/uL (0.00-0.49); IMMATURE GRAN PERCENT AUTO 0.4 % (0.0-4.9); LYMPHOCYTES ABSOLUTE AUTO 0.23 10^3/uL (0.60-5.00); LYMPHOCYTES PERCENT AUTO 4.7 % (24-44); MEAN CORPUSCULAR HEMOGLOBIN 28.6 pg (27.0-32.0); MEAN CORPUSCULAR HGB CONC 34.6 g/dL (32.0-36.0); MEAN CORPUSCULAR VOLUME 82.8 fL (83.0-97.0); MONOCYTES ABSOLUTE AUTO 0.54 10^3/uL (0.00-1.50); NEUTROPHILS ABSOLUTE AUTO 4.05 x10^3/uL (1.80-8.00); NEUTROPHILS PERCENT AUTO 82.7 % (41-71); PLATELET COUNT,PLT 204 10^3/uL (150-400); RED BLOOD CELL COUNT 3.84 x10^6/uL (4.00-5.50); WHITE BLOOD CELL COUNT,WBC 4.9 10^3/uL (4.0-11.0)
[2023-07-24 07:54] LABS: ALBUMIN 2.6 g/dL (3.4-5.0); BILIRUBIN TOTAL 0.3 mg/dL (0.0-1.0); CREATININE 0.9 mg/dL (0.6-1.0); EST CRCL DRUG DOSING (CG) 31.98 mL/min; MAGNESIUM 1.8 mg/dL (1.8-2.4); POTASSIUM,K 3.7 mEq/L (3.5-5.0)
[2023-07-24] MEDS: Hydrochlorothiazide 25 MG Tab PO SCH (08:01)
[2023-07-24] MEDS: Lisinopril 20 MG Tab PO SCH (08:01)
[2023-07-24] MEDS: Diltiazem 120 MG Cap.CD PO SCH (08:01)
[2023-07-24] MEDS: Sodium Chloride 1 GM Tab PO SCH ×2 (10:26→19:55)
[2023-07-24] MEDS: Magnesium Oxide 400 MG Tab PO SCH (10:26)
[2023-07-24] MEDS: Heparin Sodium 5,000 Units/ML Vial SUBCUT SCH (13:43)
[2023-07-25] MEDS: Heparin Sodium 5,000 Units/ML Vial SUBCUT SCH ×2 (01:00→11:33)
[2023-07-25] MEDS: Levothyroxine 50 MCG Tab PO SCH (06:37)
[2023-07-25] MEDS: Diltiazem 120 MG Cap.CD PO SCH (07:18)
[2023-07-25] MEDS: Hydrochlorothiazide 25 MG Tab PO SCH (07:18)
[2023-07-25] MEDS: Sodium Chloride 1 GM Tab PO SCH ×3 (07:18→20:17)
[2023-07-25] MEDS: Magnesium Oxide 400 MG Tab PO SCH (07:18)
[2023-07-25] MEDS: Lisinopril 20 MG Tab PO SCH (07:19)
[2023-07-25 07:23] LABS: BASOPHILS ABSOLUTE AUTO 0.04 10^3/uL (0.00-0.50); BASOPHILS PERCENT AUTO 1.2 % (0-1); EOSINOPHILS ABSOLUTE AUTO 0.03 10^3/uL (0.00-1.50); EOSINOPHILS PERCENT AUTO 0.9 % (0-6); HEMATOCRIT 32.5 % (37.0-47.0); HEMOGLOBIN 11.3 g/dL (12.0-16.0); IMMATURE GRAN ABSOLUTE AUTO 0.02 10^3/uL (0.00-0.49); IMMATURE GRAN PERCENT AUTO 0.6 % (0.0-4.9); LYMPHOCYTES ABSOLUTE AUTO 0.26 10^3/uL (0.60-5.00); LYMPHOCYTES PERCENT AUTO 7.5 % (24-44); MEAN CORPUSCULAR HEMOGLOBIN 28.6 pg (27.0-32.0); MEAN CORPUSCULAR HGB CONC 34.8 g/dL (32.0-36.0); MEAN CORPUSCULAR VOLUME 82.3 fL (83.0-97.0); MONOCYTES ABSOLUTE AUTO 0.23 10^3/uL (0.00-1.50); MONOCYTES PERCENT AUTO 6.6 % (0-10); NEUTROPHILS ABSOLUTE AUTO 2.88 x10^3/uL (1.80-8.00); NEUTROPHILS PERCENT AUTO 83.2 % (41-71); PLATELET COUNT,PLT 214 10^3/uL (150-400); RED BLOOD CELL COUNT 3.95 x10^6/uL (4.00-5.50); WHITE BLOOD CELL COUNT,WBC 3.5 10^3/uL (4.0-11.0)
[2023-07-25 07:54] LABS: ALBUMIN 2.6 g/dL (3.4-5.0); BILIRUBIN TOTAL 0.5 mg/dL (0.0-1.0); CALCIUM 8.3 mg/dL (8.4-10.1); CREATININE 0.8 mg/dL (0.6-1.0); EST CRCL DRUG DOSING (CG) 35.97 mL/min; MAGNESIUM 1.6 mg/dL (1.8-2.4); POTASSIUM,K 3.7 mEq/L (3.5-5.0); PROTEIN TOTAL,TP 6.2 g/dL (6.4-8.2)
[2023-07-25] MEDS ORDERED: Magnesium Sulfate/Water 2 GM in Premix Bag 1 BAG IV ONE (08:40)
[2023-07-25] MEDS ORDERED: Sodium Chloride 0.9% 500 ML IV ONE ×2 (09:30→14:30)
[2023-07-25] MEDS ORDERED: Sodium Chloride 0.9% 100 ML IV ONE (09:30)
[2023-07-25 12:42] LABS: ALBUMIN 2.8 g/dL (3.4-5.0); BILIRUBIN TOTAL 0.5 mg/dL (0.0-1.0); CALCIUM 8.4 mg/dL (8.4-10.1); CREATININE 0.8 mg/dL (0.6-1.0); EST CRCL DRUG DOSING (CG) 35.97 mL/min; POTASSIUM,K 3.7 mEq/L (3.5-5.0); PROTEIN TOTAL,TP 6.4 g/dL (6.4-8.2)
[2023-07-25] MEDS ORDERED: Sodium Chloride 1 GM Tab PO SCH (14:00)
[2023-07-25 17:39] LABS: CREATININE 0.8 mg/dL (0.6-1.0); EST CRCL DRUG DOSING (CG) 35.97 mL/min; POTASSIUM,K 3.6 mEq/L (3.5-5.0)
[2023-07-26] MEDS: Heparin Sodium 5,000 Units/ML Vial SUBCUT SCH (00:14)
[2023-07-26 07:09] LABS: BASOPHILS ABSOLUTE AUTO 0.05 10^3/uL (0.00-0.50); BASOPHILS PERCENT AUTO 1.1 % (0-1); EOSINOPHILS ABSOLUTE AUTO 0.04 10^3/uL (0.00-1.50); EOSINOPHILS PERCENT AUTO 0.8 % (0-6); HEMATOCRIT 31.1 % (37.0-47.0); HEMOGLOBIN 10.8 g/dL (12.0-16.0); IMMATURE GRAN ABSOLUTE AUTO 0.01 10^3/uL (0.00-0.49); IMMATURE GRAN PERCENT AUTO 0.2 % (0.0-4.9); LYMPHOCYTES ABSOLUTE AUTO 0.39 10^3/uL (0.60-5.00); LYMPHOCYTES PERCENT AUTO 8.2 % (24-44); MEAN CORPUSCULAR HEMOGLOBIN 28.9 pg (27.0-32.0); MEAN CORPUSCULAR HGB CONC 34.7 g/dL (32.0-36.0); MEAN CORPUSCULAR VOLUME 83.2 fL (83.0-97.0); MONOCYTES ABSOLUTE AUTO 0.49 10^3/uL (0.00-1.50); MONOCYTES PERCENT AUTO 10.3 % (0-10); NEUTROPHILS ABSOLUTE AUTO 3.77 x10^3/uL (1.80-8.00); NEUTROPHILS PERCENT AUTO 79.4 % (41-71); PLATELET COUNT,PLT 224 10^3/uL (150-400); RED BLOOD CELL COUNT 3.74 x10^6/uL (4.00-5.50); WHITE BLOOD CELL COUNT,WBC 4.8 10^3/uL (4.0-11.0)
[2023-07-26] MEDS: Levothyroxine 50 MCG Tab PO SCH (07:30)
[2023-07-26 07:51] LABS: ALBUMIN 2.5 g/dL (3.4-5.0); BILIRUBIN TOTAL 0.4 mg/dL (0.0-1.0); CALCIUM 8.2 mg/dL (8.4-10.1); CREATININE 0.7 mg/dL (0.6-1.0); EST CRCL DRUG DOSING (CG) 41.11 mL/min; MAGNESIUM 1.7 mg/dL (1.8-2.4); POTASSIUM,K 3.4 mEq/L (3.5-5.0)
[2023-07-26] MEDS: Diltiazem 120 MG Cap.CD PO SCH (07:57)
[2023-07-26] MEDS: Magnesium Oxide 400 MG Tab PO SCH (07:57)
[2023-07-26] MEDS: Sodium Chloride 1 GM Tab PO SCH (07:58)
[2023-07-26] MEDS: Lisinopril 20 MG Tab PO SCH (07:58)
[2023-07-26 09:05] VITALS: BP 151/64; PULSE 83
== END 2023-07-26 10:15 | DRG 641 ==
LOC: CC.ED 10:38 → CC.MS 13:37
PROVIDERS: ADMIT Physician Assistant Medical; ATTEND Physician Assistant Medical
DX: E87.1 Hypo-osmolality and hyponatremia (principal); N17.9 Acute kidney failure, unspecified; E87.6 Hypokalemia; E83.42 Hypomagnesemia; I10 Essential (primary) hypertension; I48.91 Unspecified atrial fibrillation; E03.9 Hypothyroidism, unspecified; Z88.0 Allergy status to penicillin; Z88.8 Allergy status to other drugs, medicaments and biological substances; Z91.030 Bee allergy status; Z91.041 Radiographic dye allergy status; Z79.01 Long term (current) use of anticoagulants; Z79.899 Other long term (current) drug therapy; Z90.710 Acquired absence of both cervix and uterus; Z88.3 Allergy status to other anti-infective agents; Z90.49 Acquired absence of other specified parts of digestive tract; Z98.890 Other specified postprocedural states; Z11.52 Encounter for screening for COVID-19
CPT/HCPCS: 0241U; 36415; 70450; 71045; 80048; 80053; 81001; 83735; 84484; 85025; 93005; 96361; 96365; 96366; 97110-GP; 97161-GP; 99285-25; A9270-GY; J1644; J3475; J7030; J7040

== ENCOUNTER 2024-01-31 10:28 | Emergency (ER) | payer MEDICARE, OTHER ==
[2024-01-31 11:33] VITALS: BP 144/76; PULSE 78
[2024-01-31] MEDS: Bacitracin Oint 1 GM U/D Packet TOP ONE (11:34)
[2024-01-31] MEDS: Lidocaine 1% with EPINEPHrine 1:100,000 10 ML MDV INJECT ONE (11:34)
[2024-01-31] MEDS: Diphtheria,Pertussis(Acell),Tetanus Vaccine 0.5 ML Syringe IM ONE (12:03)
== END 2024-01-31 13:05 | disposition home or self-care (01) ==
LOC: CC.ED 10:28
DX: S42.141A Displaced fracture of glenoid cavity of scapula, right shoulder, initial encounter for closed fracture (principal); S01.81XA Laceration without foreign body of other part of head, initial encounter; I48.91 Unspecified atrial fibrillation; I10 Essential (primary) hypertension; E03.9 Hypothyroidism, unspecified; Z88.8 Allergy status to other drugs, medicaments and biological substances; Z91.041 Radiographic dye allergy status; Z91.030 Bee allergy status; Z88.0 Allergy status to penicillin; Z79.899 Other long term (current) drug therapy; Z90.49 Acquired absence of other specified parts of digestive tract; W06.XXXA Fall from bed, initial encounter
CPT/HCPCS: 12011; 73030-RT; 90471; 90715; 99283-25; 99284; J3490